=== PATIENT | male | born 1965 | race Asian ===

== ENCOUNTER 2019-05-15 12:11 | Emergency (ER) | payer OTHER ==
--- NOTE | 2019-05-15 12:57 | ED Physician Chart ---
ED Chief Complaint/HPI - Patient Information Date Seen:: 05/15/19 Time Seen:: 12:45 Chief Complaint:: cough History of Present Illness:: Patient's had a cough for 1 month. This morning he had a severe paroxysm of cough. Sputum was initially yellow and now is quite. He had chills this morning and has felt warm but did not take his temperature. Allergies:: Allergies Allergy/AdvReac Type Severity Reaction Status Date / Time No Known Allergies Allergy Verified 05/15/19 12:18 Vitals:: Vital Signs - 8 hr 05/15/19 12:19 HR 80 RR 18 BP 132/84 O2 Sat % 96 Historian:: Patient Review:: Nurse's Note Reviewed ED Review of Systems - Review of Systems General/Constitutional: Chills, Other (possible fever) Skin: No bruising Head: No headache Eyes: No loss of vision ENT: No earache Neck: No neck pain Pulmonary: Cough, Sputum GI: No nausea, No vomiting, No diarrhea G/U: No dysuria Musculoskeletal: No bone or joint pain, No back pain, No muscle pain Endocrine: No polyuria, No polydipsia Psychiatric: No prior psych history, No depression, No anxiety Hematopoietic: No bruising Allergic/Immuno: No urticaria Neurological: No syncope, No focal symptoms ED Past Medical History - Past Medical History Past Medical History: No significant medical hx Family History: Heart disease, Diabetes Melitus Social History: Non Smoker, No Alcohol Surgical History: other (suturing of dog bite both forearms) Psychiatricy History: None Medication: None ED Labs/Radiology/EKG Results - Radiology Results Results: Chest x-ray negative ED Assessment - Assessment General Assessment: Although patient had no wheezing on auscultation of the chest I ordered a breathing treatment because although the chest x-ray showed no infiltrate the lungs appeared hyperinflated suggestive of reactive airway disease. Patient got only slight improvement after the breathing treatment. Since patient has had a cough for 1 month and apparently severe paroxysms of cough the possibility of pertussis exists. If indeed the patient does have pertussis the reason for prescribing antibiotics would be to make the patient noncontagious. A Z-Mohan will be prescribed. ED Septic Shock - . Is Septic Shock (SBP<90, OR Lactate>4 mmol\L) present?: No - <6hrs of presentation: Vital Signs: Vital Signs - 8 hr 05/15/19 12:19 HR 80 RR 18 BP 132/84 O2 Sat % 96 ED Reassessment (Disposition) - Reassessment Reassessment Condition:: Improved - Diagnosis Diagnosis:: Acute bronchitis; possible pertussis - Aftercare/Follow up Instructions Aftercare/Follow-Up Instructions:: Counseled pt regarding lab results/diagnosis & need follow up Medication Prescribed:: Z-Mohan to take per directions - Patient Disposition Discharge/Transfer:: Home Condition at Disposition:: Stable, Improved
[2019-05-15] MEDS ORDERED: Albuterol/Ipratropium Neb 3 ML AERS HHN ONE ×2 (13:26→13:32)
--- NOTE | 2019-05-16 08:23 | Diagnostic Imaging Report ---
Chest x-ray (2 views) HISTORY: Cough The lungs are hyperexpanded which may be associated with changes of COPD. No acute focal pulmonary processes. The heart size is normal. No hilar or mediastinal abnormalities. IMPRESSION: 1. No acute abnormalities 2. Pulmonary hyperexpansion which may be associated with changes of COPD
== END 2019-05-15 14:30 | disposition home or self-care (01) ==
LOC: ER 12:11
DX: J20.9 Acute bronchitis, unspecified (principal)
CPT/HCPCS: 71046-TC; 94640; Z7502